=== PATIENT | male | born 1945 | race Caucasian/White ===

== ENCOUNTER 2019-08-07 08:49 | Emergency (ER) | payer OTHER, SELFPAY ==
[2019-08-07 09:00] VITALS: BP 132/61; PULSE 72; RESP 18; TEMP 36.8; O2SAT 96; BMI 31.0
--- NOTE | 2019-08-07 09:16 | ED_ITS ---
HPI - Abdominal Pain General Chief Complaint: Abdominal Pain Stated Complaint: no bowel movement since sunday Time Seen by Provider: 08/07/19 09:16 Source: patient Mode of arrival: Ambulatory History of Present Illness HPI narrative: CC: No bowel movement in 5 days HPI: The patient is a 73-year-old male with a history of lower abdominal pain and no bowel movement in the last 5 days prior to admission. The patient states that he has been passing gas. He states his last bowel movement was on Sunday and he had a little bit of blood in the stool. He started taking MiraLax yesterday after talking to the doctors at the [facility] [place] and has not had a bowel movement. He is taken 2 doses. The patient has a ureterostomy status post resection of his bladder and prostate for bladder cancer. The patient states that years ago he had a colostomy foreign abdominal injury sustained in the [place]. He primarily feels bloated with mild abdominal discomfort and pain. He has had no nausea vomiting diarrhea. The pain is mildly crampy in nature. He states that he felt sick on Sunday when he had his last bowel movement and became hot and sweaty. He denies a history of ulcerative colitis Crohn's disease diverticulitis irritable bowel syndrome as well as any back pain. He has not had any fever chills sweats cough shortness of breath chest pain palpitations dizziness. He denies any melena in the recent past. He has no urinary symptoms since he has his ureterostomy. Related Data Allergies Allergy/AdvReac Type Severity Reaction Status Date / Time Penicillins Allergy Verified 08/07/19 09:00 Review of Systems Review of Systems Narrative: All review of systems were negative except for those mentioned in the history of present illness. Exam Narrative Exam Narrative: PHYSICAL EXAM: CONSTITUTIONAL: Awake, Alert, Oriented, Coherent, Cooperative in NAD. Does not appear toxic or ill. HEAD: AT/NC EENT: PERRL, FROM of eyes, no discharge. No epistaxis or nasal drainage Oral mucosa is moist and pink, posterior pharynx is without erythema or exudate. NECK: Supple, no obvious JVD, Trachea is midline without stridor, no palpable LN or masses. SPINE: No gross deformity, no palpable tenderness of the cervical, thoracic, lumbar or sacral spine. No CVA tenderness. THORAX: No deformity, retractions, chest wall tenderness, subcutaneous air or crepitice. LUNGS: Breath sounds are decreased clear and symmetrical. HEART: Normal heart tones, regular rhythm and rate without murmur. ABDOMEN: The patient's abdomen has multiple midline surgical scars. He has a ureterostomy that is functioning in the right lower quadrant. The rest of his abdomen is soft and nontender. EXTREMITIES: No edema, cyanosis, deformity or tenderness. SKIN: No rash, bruising, petechiae or purpura. NEURO: Awake, alert, oriented, conversive, no focal facial asymmetry/ cranial nerves II-XII are symmetrical and normal, moves all 4 extremities and is ambulatory RECTAL EXAM: The patient's rectal exam reveals good sphincter tone without any mass is or hemorrhoids appreciable. Initial Vital Signs Initial Vital Signs: Vital Signs Temperature 98.3 F 08/07/19 09:00 Pulse Rate 72 08/07/19 09:00 Respiratory Rate 18 08/07/19 09:00 Blood Pressure 132/61 08/07/19 09:00 Pulse Oximetry 96 08/07/19 09:00 Course Course Course Narrative: [address] scan reveals no acute pathology or bowel obstruction. The patient's white blood count is 6.8, hemoglobin is 14.6 and hematocrit 43.8. Blood pressure is 132/61 heart rate of 72 respiratory rate is 18. The patient's vital signs are stable. The patient will be discharged home and advised to follow-up with his primary care physician for a colonoscopy. If he develops profuse rectal bleeding he needs to return to the emergency dep artment otherwise he follows up with his primary care physician. 1130 rectal exam reveals that the patient has no external hemorrhoids. Rectal tone is nice and tight without tenderness. There are no rectal masses. The patient has ample as filled with a soft brown stool that tests negative for oc cult blood. Because of the patient's multiple surgeries on his abdomen and complaint of intermittent abdominal pain cramps without any bowel movements a CT scan of his abdomen was obtained to definitively rule out any acute emergent pathology. As noted above his CT scan was negative for any acute pathology. The patient was treated as though he was having constipation. Since he reported that he has had blood in his stool he will need to follow-up with the [facility] to have an outpatient colonoscopy performed. The patient was informed of this. Orders Ordered: Discontinued Medications Sodium Chloride (Normal Saline 0.9%) 1,000 mls @ 1,000 mls/hr IV BOLUS ONE Stop: 08/07/19 10:25 Last Infusion: 08/07/19 10:57 Dose: 0 mls/hr Documented by: Admin: 08/07/19 09:46 Dose: 1,000 mls/hr Documented by: LON Vital Signs Vital signs: Vital Signs - 8 hr 08/07/19 09:00 Temperature 98.3 F Pulse Rate 72 Respiratory Rate 18 Blood Pressure 132/61 Pulse Oximetry 96 MDM - Abdominal Pain Medical Records Attestation: I reviewed the patient's medical records. Lab Data Attestation: I reviewed the patient's lab results. Result diagrams: 08/07/19 09:40 08/07/19 09:40 Labs: Lab Results 08/07/19 08/07/19 Range/Units 09:40 09:40 WBC 6.8 (4.5-11.0) X10^3/uL RBC 4.80 (4.5-5.9) X10^6/uL Hgb 14.6 (13.5-17.5) g/dL Hct 43.8 (41-53) % MCV 91.2 (80-100) fL MCH 30.5 (26-34) PG MCHC 33.4 (30-36) % RDW 13.7 (11.6-14.8) % Plt Count 210 (150-400) X10^3/uL Neut % (Auto) 69.0 (50-75) % Lymph % (Auto) 17.9 L (25-40) % Sully % (Auto) 8.8 (3-14) % Eos % (Auto) 3.4 (2-4) % Baso % (Auto) 0.9 (0-2) % Neut # (Auto) 4700 (7903-8669) /uL Lymph # (Auto) 1200 (6984-9593) /uL Sully # (Auto) 600 (0-900) /uL Eos # (Auto) 200 (0-450) /uL Baso # (Auto) 100 (0-100) /uL Sodium 139 (137-145) mmol/L Potassium 4.5 (3.4-5.1) mmol/L Chloride 106 (98-107) mmol/L Carbon Dioxide 26 (22-32) mmol/L BUN 21 H (9-20) mg/dL Creatinine 1.30 H (0.66-1.25) mg/dL Estimated GFR 53.8 L (>60) mL/min BUN/Creatinine Ratio 16.2 (6-22) Glucose 107 (80-110) mg/dL Calcium 9.9 (8.4-10.2) mg/dL Total Bilirubin 0.6 (0.2-1.3) mg/dL AST 28 (17-59) IU/L ALT 12 (<50) IU/L Alkaline Phosphatase 60 (38-126) U/L Total Protein 7.6 (6.3-8.2) g/dL Albumin 4.3 (3.5-5.0) g/dL Globulin 3.3 (1.7-4.1) g/dL Albumin/Globulin Ratio 1.3 (1.0-2.8) Lipase 220 (23-300) U/L Discharge Plan Departure Patient Disposition: Home Clinical Impression: Rectal bleeding Constipation Qualifiers: Constipation type: unspecified constipation type Qualified Code(s): K59.00 - Constipation, unspecified Discharge Date/Time: 08/07/19 11:49 Instructions: DI for Constipation, DI for Rectal Bleeding Activity Restrictions/Additional Instructions: 1. Your rectum is filled with brown stool. You can't administer a Fleet's or oil retention enema. If you do not have any response you can administer a 2nd 1 or a regular fleets enema. If you still do not have a bowel movement, obtain a 64 oz bottle of Gatorade and to that a had the medium box (238 grams) of MiraLax. Mix well, refrigerator, and every 30 minutes drink in 8 oz glass until you start having a bowel movement. After you start having a bowel movement you can stop drinking the mixture. After that since you have had constipation as a stool softener you can take 1 packet of MiraLax in the morning daily as needed. Do not take it for any more than 10 days in a row. After that. It for 2-3 days then resume as needed. 2. Return to the emergency department if you start developing severe abdominal pain with profuse rectal bleeding, dizziness, rapid heart rate, or passing out. 3. Drink plenty of fluids as necessary and eat fiber including vegetables and fruits. 4. Follow-up with your primary care physician to be referred to a home care chaplain for a colonoscopy to further investigate the blood that you have had in your stool.
[2019-08-07] MEDS: SODIUM CHLORIDE 0.9% 1,000 ML 1000 ML IV (09:46)
[2019-08-07 09:54] LABS: Add Manual Diff / Slide Review NO; Basophils Absolute Auto 100 /uL (0-100); Basophils Percent Auto 0.9 % (0-2); Eosinophils Absolute Auto 200 /uL (0-450); Eosinophils Percent Auto 3.4 % (2-4); Hematocrit 43.8 % (41-53); Hemoglobin 14.6 g/dL (13.5-17.5); Lymphocytes Absolute Auto 1200 /uL (1100-4500); Lymphocytes Percent Auto 17.9 % (25-40); Mean Corpuscular HGB Conc 33.4 % (30-36); Mean Corpuscular Hemoglobin 30.5 PG (26-34); Mean Corpuscular Volume 91.2 fL (80-100); Monocytes Absolute Auto 600 /uL (0-900); Monocytes Percent Auto 8.8 % (3-14); Neutrophils Absolute Auto 4700 /uL (1500-7000); Platelet Count 210 X10^3/uL (150-400); Red Cell Distribution Width 13.7 % (11.6-14.8); White Blood Cell Count 6.8 X10^3/uL (4.5-11.0)
[2019-08-07 09:59] LABS: Alanine Aminotransferase 12 IU/L (<50); Albumin 4.3 g/dL (3.5-5.0); Albumin Globulin Ratio 1.3 (1.0-2.8); Alkaline Phosphatase 60 U/L (38-126); Aspartate Aminotransferase 28 IU/L (17-59); BUN Creatinine Ratio 16.2 (6-22); Bilirubin Total 0.6 mg/dL (0.2-1.3); Blood Urea Nitrogen 21 mg/dL (9-20); Calcium 9.9 mg/dL (8.4-10.2); Carbon Dioxide 26 mmol/L (22-32); Chloride 106 mmol/L (98-107); Estimated Glomerular Filt Rate 53.8 mL/min (>60); Globulin 3.3 g/dL (1.7-4.1); Glucose 107 mg/dL (80-110); HEMOLYSIS < 15 (0-50); Lipase 220 U/L (23-300); Potassium 4.5 mmol/L (3.4-5.1); Sodium 139 mmol/L (137-145); Total Protein 7.6 g/dL (6.3-8.2)
--- NOTE | 2019-08-07 10:11 | DI.CT.S_ITS ---
PROCEDURE: CT ABDOMEN PELVIS W CON INDICATIONS: bloody stools with intermittent pain TECHNIQUE: After the administration of intravenous contrast, 5 mm thick sections acquired from the diaphragm to the symphysis. 5 mm coronal and sagittal reformats were acquired. For radiation dose reduction, the following was used: automated exposure control, adjustment of mA and/or kV according to patient size. COMPARISON: None. FINDINGS: Image quality: Excellent. ABDOMEN: Lung bases: Lung bases are clear. Heart size is normal. Solid organs: Liver is normal in size and enhancement. Gallbladder is unremarkable. Biliary system is non dilated. Pancreas enhances normally. Spleen is normal in size and enhancement. No adrenal nodules. Kidneys demonstrate normal size and enhancement, without hydronephrosis. Peritoneum and bowel: Bowel loops demonstrate normal wall thickness and caliber. No free fluid or air. A loop ileostomy is noted. Nodes and vessels: No retroperitoneal or mesenteric adenopathy by size criteria. Aorta and inferior vena cava are normal in size. Diffuse atherosclerotic calcifications. Miscellaneous: No ventral hernias. PELVIS: Genitourinary: Question remote cystectomy, ureteral implantations in an ileal conduit, and formation of a neobladder. Miscellaneous: No inguinal hernias or adenopathy. Bones: No suspicious bony lesions. No vertebral body compression fractures. IMPRESSION: 1. Appearance suggests previous cystectomy, ileal conduit and neobladder formation. 2. Loop ileostomy also noted. 3. No evidence of metastatic disease. 4. No evidence of acute abdominal process. Dictated by: Bob Pinto M.D. on 08/07/2019 at 10:28 Approved by: Bob Pinto M.D. on 08/07/2019 at 10:33
== END 2019-08-07 11:49 | disposition home or self-care (01) ==
PROVIDERS: Emergency Provider Emergency Medicine
DX: K62.5 Hemorrhage of anus and rectum (principal); K59.00 Constipation, unspecified
CPT/HCPCS: 36415; 74177; 80053; 83690; 85025; 96360; 99284; 99285; Q9967